=== PATIENT | female | born 1985 | race American Indian/Alaskan Native ===

== ENCOUNTER 2016-07-23 12:12 | Emergency (ER) | payer MEDICAID ==
--- NOTE | 2016-07-23 13:27 | Emergency Department Report ---
Chief Complaint: Abdominal Pain Stated Complaint: ABD PAIN/16WKS Time Seen by Provider: 07/23/16 13:25 - HPI History of Present Illness: Patient is a 31 y/o female at 17 weeks gestation who presents due to right flank pain since this morning. No vaginal bleeding - ROS Review of Systems: no nausea, vomiting or diarrhea, no dysuria, no hematuria, no fever or chills - Exam Vital Signs: Vital Signs 07/23/16 12:57 Temperature 98.4 F Pulse Rate 91 H Respiratory 18 Rate Blood Pressure 122/73 O2 Sat by Pulse 100 Oximetry Physical Exam: right flank tenderness MSE screening note: Focused history and physical exam performed. Due to findings the following was ordered:abd pain protocol ED Disposition for MSE Condition: Stable Instructions: Abdominal Pain (ED)
[2016-07-23 13:58] LABS: Basophils % (Auto) 0.4 % (0.0-1.8); Eosinophils % (Auto) 0.6 % (0.0-4.3); Hematocrit 29.5 % (30.3-42.9); Hemoglobin 9.7 gm/dl (10.1-14.3); Mean Corpuscular HGB Conc 33 % (30-34); Platelet Count 256 K/mm3 (140-440); Red Blood Count 4.38 M/mm3 (3.65-5.03); Red Cell Distribution Width 19.3 % (13.2-15.2); White Blood Count 10.7 K/mm3 (4.5-11.0)
[2016-07-23 14:02] LABS: Mean Corpuscular Hemoglobin 22 pg (28-32); Mean Corpuscular Volume 67 fl (79-97)
[2016-07-23 14:11] LABS: Amylase 76 units/L (27-131); Anion Gap 17 mmol/L; Blood Urea Nitrogen 5 mg/dL (7-17); Calcium 8.9 mg/dL (8.4-10.2); Carbon Dioxide 22 mmol/L (22-30); Glucose 78 mg/dL (65-100); Potassium 3.6 mmol/L (3.6-5.0); Sodium 137 mmol/L (137-145)
[2016-07-23 14:15] LABS: Alanine Aminotransferase 6 units/L (7-56); Albumin 3.9 g/dL (3.9-5); Albumin/Globulin Ratio 1.1 %; Alkaline Phosphatase 55 units/L (35-129); Bilirubin,Total < 0.2 mg/dL (0.1-1.2); Lipase 30 units/L (13-60); Total Protein 7.5 g/dL (6.3-8.2)
[2016-07-23 14:16] LABS: Bilirubin,Direct < 0.2 mg/dL (0-0.2)
[2016-07-23 16:28] LABS: Bilirubin,Urine NEG (Negative); Blood,Urine NEG (Negative); Ketones,Urine NEG (Negative); Leukocyte Esterase,Urine NEG (Negative); Mucus,Urine FEW /HPF; Nitrite,Urine NEG (Negative); Protein,Urine <15 mg/dL mg/dL (Negative); Urobilinogen,Urine < 2.0 mg/dL (<2.0)
[2016-07-23 17:42] VITALS: BP 118/78
--- NOTE | 2016-07-23 18:46 | Emergency Department Report ---
ED Abdominal Pain HPI - General Chief Complaint: Abdominal Pain Stated Complaint: ABD PAIN/16WKS Time Seen by Provider: 07/23/16 18:18 Source: patient Mode of arrival: Ambulatory Limitations: No Limitations - History of Present Illness Initial Comments: 31-year-old female presents to the emergency department complaining of right- sided abdominal pain. Patient is approximate 17 weeks she is . Patient reports acute onset of right-sided pain at 9 AM. She points to her right flank. Pain did not radiate. She reports constant, sharp pain that was gradually improving until resolution at approximately 3 PM. She denies associated nausea, vomiting, diarrhea, vaginal bleeding, or vaginal discharge. At this time, the patient has no complaints. MD Complaint: flank pain -: Sudden, This morning Time: 09:00 Location: R flank Radiation: none Migration to: no migration Severity scale (0 -10): 0 Quality: sharp Consistency: now resolved Improves With: nothing Worsens With: nothing Associated Symptoms: denies other symptoms - Related Data Allergies Allergy/AdvReac Type Severity Reaction Status Date / Time No Known Allergies Allergy Unverified 07/23/16 13:00 ED Review of Systems ROS: Stated complaint: ABD PAIN/16WKS Other details as noted in HPI Comment: All other systems reviewed and negative Gastrointestinal: as per HPI, abdominal pain (right flank) ED Past Medical Hx - Past Medical History Previous Medical History?: No Additional medical history: amenia - Surgical History Past Surgical History?: No - Family History Family history: no significant - Social History Smoking Status: Never Smoker Substance Use Type: None ED Physical Exam - General Limitations: No Limitations General appearance: alert, in no apparent distress - Head Head exam: Present: atraumatic, normocephalic - Eye Eye exam: Present: normal appearance, PERRL, EOMI - ENT ENT exam: Present: normal exam, normal orophraynx, mucous membranes moist - Neck Neck exam: Present: normal inspection, full ROM. Absent: tenderness - Respiratory Respiratory exam: Present: normal lung sounds bilaterally. Absent: respiratory distress - Cardiovascular Cardiovascular Exam: Present: regular rate, normal rhythm, normal heart sounds - GI/Abdominal GI/Abdominal exam: Present: soft, normal bowel sounds. Absent: distended, tenderness - Extremities Exam Extremities exam: Present: normal inspection, full ROM. Absent: tenderness - Back Exam Back exam: Present: normal inspection, full ROM. Absent: tenderness - Neurological Exam Neurological exam: Present: alert, oriented X3. Absent: motor sensory deficit - Skin Skin exam: Present: warm, dry, intact ED Course Vital Signs 07/23/16 07/23/16 12:57 17:41 Temperature 98.4 F 98.1 F Pulse Rate 91 H 78 Respiratory 18 16 Rate Blood Pressure 122/73 Blood Pressure 118/78 [Left] O2 Sat by Pulse 100 99 Oximetry ED Medical Decision Making - Lab Data Result diagrams: 07/23/16 13:41 07/23/16 13:41 - Medical Decision Making Lab results reviewed and discussed with the patient. heart tones [facility] 160 bpm. Patient is symptom-free in the emergency department. Patient is declining ultrasound at this time. Patient will be discharged home to follow up with her [employer]. - Differential Diagnosis abdominal pain, kidney stone, cholelithiasis, cholecystitis Critical care attestation.: If time is entered above; I have spent that time in minutes in the direct care of this critically ill patient, excluding procedure time. ED Disposition Clinical Impression: Right flank pain Disposition: DISCHARGED TO HOME OR SELFCARE Is pt being admited?: No Condition: Stable Instructions: Abdominal Pain (ED) Referrals: PRIMARY CARE, [Primary Care Provider] - 3-5 Days Forms: Work/School Release Form(ED) Time of Disposition: 18:46
== END 2016-07-23 18:52 | disposition home or self-care (01) ==
LOC: ED 12:12
DX: O26.892 Other specified pregnancy related conditions, second trimester (principal); R10.9 Unspecified abdominal pain; D64.9 Anemia, unspecified; Z3A.17 17 weeks gestation of pregnancy
CPT/HCPCS: 36415; 80048; 80074; 81001; 81025; 82150; 83690; 84702; 85025; 99283